=== PATIENT | male | born 1945 | race Caucasian/White ===

== ENCOUNTER 2017-09-21 17:13 | Emergency (ER) | payer OTHER, MEDICARE ==
[2017-09-21 17:33] VITALS: BP 156/77; PULSE 80; BMI 23.7
[2017-09-21 17:36] VITALS: TEMP 98.4
--- NOTE | 2017-09-21 17:43 | PDOC ---
Attending Attestation - Resident Resident Name: Loan Bautista - ED Attending Attestation I have performed the following: I have examined & evaluated the patient, The case was reviewed & discussed with the resident, I agree w/resident's findings & plan, Exceptions are as noted - HPI HPI: 09/21/17 18:48 The patient is a 71 year old male, with a significant past medical history of irregular heartbeat, who presents to the emergency department with, mid-lower abdominal pain. The patient describes his pain as sharp with one episode of cold sweats and nausea which he attributes to the pain. The patient reports the pain was gradual worsening onset and is now fully resolved. His pain was alleviated while lying down. He believes his pain is attributed to his breakfast , the patient normally does not eat before going to PT. He denies any recent fevers,headache or dizziness. He denies any recent vomit, diarrhea or constipation. He denies any recent chest pain or shortness of breath. He denies any recent dysuria, frequency, urgency or hematuria. Allergies: Ciprofloxacin - Physicial Exam PE: 09/21/17 18:48 GENERAL: Awake, alert, and fully oriented, in no acute distress HEAD: No signs of trauma EYES: PERRLA, EOMI, sclera anicteric, conjunctiva clear ENT: Auricles normal inspection, hearing grossly normal, nares patent, oropharynx clear without exudates. Moist mucosa NECK: Normal ROM, supple, no lymphadenopathy, JVD, or masses LUNGS: Breath sounds equal, clear to auscultation bilaterally. No wheezes, and no crackles HEART: Regular rate and rhythm, normal S1 and S2, no murmurs, rubs or gallops ABDOMEN: Soft, nontender, normoactive bowel sounds. No guarding, no rebound. No masses EXTREMITIES: Normal range of motion, no edema. No clubbing or cyanosis. No cords, erythema, or tenderness NEUROLOGICAL: Cranial nerves II through XII grossly intact. Normal speech, normal gait SKIN: Warm, Dry, normal turgor, no rashes or lesions noted. Attestations - Attestations 09/21/17 18:49 Documentation prepared by Ramos Myrick, acting as medical photographer for Cassy Saavedra MD.
--- NOTE | 2017-09-21 17:56 | PDOC ---
History of Present Illness - General Chief Complaint: Pain Stated Complaint: ABDOMINAL PAIN Time Seen by Provider: 09/21/17 17:35 - History of Present Illness Initial Comments: 09/21/17 17:36 71 year old Past History - Past Medical History Allergies/Adverse Reactions: Allergies Allergy/AdvReac Type Severity Reaction Status Date / Time ciprofloxacin [From Cipro] Allergy Verified 09/21/17 17:29 COPD: No - Suicide/Smoking/Psychosocial Hx Smoking History: Never smoked Hx Alcohol Use: No Drug/Substance Use Hx: No *Physical Exam - Vital Signs Last Vital Signs Temp Pulse Resp BP Pulse Ox 98.4 F 80 20 156/77 100 09/21/17 17:30 09/21/17 17:30 09/21/17 17:30 09/21/17 17:30 09/21/17 17:30
[2017-09-21 18:31] LABS: URINE APPEARANCE CLEAR; URINE BILIRUBIN NEGATIVE (<2.0 mg/dL); URINE COLOR LTYELLOW; URINE GLUCOSE (UA) NEGATIVE (NEGATIVE); URINE KETONE TRACE (NEGATIVE); URINE LEUK ESTERASE NEGATIVE (NEGATIVE); URINE NITRITE NEGATIVE (NEGATIVE); URINE PROTEIN NEGATIVE (NEGATIVE); URINE UROBILINOGEN NEGATIVE mg/dL (0.2-1.0)
[2017-09-21 18:34] LABS: BASO % 0.6 % (0-2.0); HEMATOCRIT 41.8 % (35.4-49); HEMOGLOBIN 14.7 GM/dL (11.7-16.9); MCH 30.3 pg (25.7-33.7); MCHC 35.2 g/dl (32.0-35.9); MEAN CELL VOLUME 86.1 fl (80-96); MEAN PLT VOLUME 8.5 fl (7.5-11.1); MONO % 8.1 % (3.8-10.2); NEUT % 82.3 % (42.8-82.8); PLATELET COUNT 169 K/MM3 (134-434); RBC 4.85 M/mm3 (4.00-5.60); RDW 13.3 % (11.9-15.9); WHITE BLOOD COUNT 8.8 K/mm3 (4.0-10.0)
[2017-09-21 19:05] LABS: ANION GAP 10 (8-16); BILIRUBIN,TOTAL 0.6 mg/dL (0.2-1.0); BLOOD UREA NITROGEN 28 mg/dL (7-18); CHLORIDE 107 mmol/L (98-107); CO2 25 mmol/L (21-32); CREATININE 1.1 mg/dL (0.7-1.3); GLUCOSE,RANDOM 90 mg/dL (74-106); POTASSIUM 3.8 mmol/L (3.5-5.1); SGOT/AST 29 U/L (15-37); SGPT/ALT 30 U/L (12-78); SODIUM 142 mmol/L (136-145); TOT PROT 7.4 g/dl (6.4-8.2)
[2017-09-21 19:07] LABS: ALK PHOS 76 U/L (45-117)
--- NOTE | 2017-09-21 20:27 | PDOC ---
*Physical Exam - Vital Signs Last Vital Signs Temp Pulse Resp BP Pulse Ox 98.4 F 80 20 156/77 100 09/21/17 17:30 09/21/17 17:30 09/21/17 17:30 09/21/17 17:30 09/21/17 17:30 ED Treatment Course - LABORATORY CBC & Chemistry Diagram: 09/21/17 18:30 09/21/17 18:10 - ADDITIONAL ORDERS Additional order review: Laboratory Results 09/21/17 09/21/17 18:10 18:10 Sodium 142 Potassium 3.8 Chloride 107 Carbon Dioxide 25 Anion Gap 10 BUN 28 H Creatinine 1.1 Creat Clearance w eGFR > 60 Random Glucose 90 Calcium 9.0 Total Bilirubin 0.6 AST 29 ALT 30 Alkaline Phosphatase 76 Creatine Kinase 375 H Creatine Kinase Index 0.9 CK-MB (CK-2) 3.42 Troponin I < 0.02 Total Protein 7.4 Albumin 4.0 Urine Color Ltyellow Urine Appearance Clear Urine pH 8.0 Ur Specific Dema 1.015 Urine Protein Negative Urine Glucose (UA) Negative Urine Ketones Trace H Urine Blood Negative Urine Nitrite Negative Urine Bilirubin Negative Urine Urobilinogen Negative Ur Leukocyte Esterase Negative 09/21/17 18:30 RBC 4.85 MCV 86.1 MCHC 35.2 RDW 13.3 MPV 8.5 Neutrophils % 82.3 Lymphocytes % 8.0 Monocytes % 8.1 Eosinophils % 1.0 Basophils % 0.6 Medical Decision Making - Medical Decision Making 09/21/17 20:[address] scan. All labs negative, patient feels "wonderful" Will discharge with recommendations. *DC/Admit/Observation/Transfer Diagnosis at time of Disposition: Dyspepsia, Abdominal pain - Discharge Dispostion Disposition: HOME Condition at time of disposition: Improved Decision to Admit order: No - Referrals - Patient Instructions Printed Discharge Instructions: DI for Abdominal Pain-Adult, Indigestion Additional Instructions: Follow up with your primary care provider within the next 2-3 days. Come back to the ER for any new, worsening or concerning symptom. - Post Discharge Activity
--- NOTE | 2017-09-22 17:02 | EKG ---
Test Reason : Blood Pressure : / mmHG Vent. 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
== END 2017-09-21 20:42 | disposition home or self-care (01) ==
LOC: JER 17:13
DX: K30 Functional dyspepsia (principal); Z86.79 Personal history of other diseases of the circulatory system
CPT/HCPCS: 36415; 80053; 81003; 82550; 82553; 84484; 85025; 87086; 93005; 93010; 99283-25